=== PATIENT | male | born 1940 | race Caucasian/White ===

== ENCOUNTER 2024-04-22 15:52 | Emergency (ER) | payer MEDICARE ==
[~2024-04-22] VITALS: Ht 167.6 cm; Wt 90.7 kg
[2024-04-22] MEDS ORDERED: VAZALORE81 MG (16:05)
[2024-04-22] MEDS ORDERED: ALLOPURINOL300 MG (16:06)
[2024-04-22] MEDS ORDERED: LISINOPRIL20 MG (16:06)
[2024-04-22] MEDS ORDERED: DILTIAZEM ER300 MG (16:06)
[2024-04-22] MEDS ORDERED: LABETALOL HCL200 MG (16:06)
[2024-04-22] MEDS ORDERED: PANTOPRAZOLE SO40 MG (16:06)
[2024-04-22] MEDS ORDERED: NIACOR500 MG (16:07)
[2024-04-22] MEDS ORDERED: ROSUVASTATIN CA20 MG (16:07)
[2024-04-22] MEDS ORDERED: B12 ACTIVE1000 MCG (16:07)
[2024-04-22] MEDS ORDERED: OSTERA TABLET1 EACH (16:08)
[2024-04-22] MEDS ORDERED: ISOSORBIDE MONO30 MG (16:08)
[2024-04-22] MEDS ORDERED: IRON236 MG (16:09)
[2024-04-22] MEDS ORDERED: GLIMEPIRIDE1 MG (16:09)
[2024-04-22] MEDS ORDERED: PERCOCET 5-3251 EACH (16:10)
[2024-04-22] MEDS ORDERED: OPCON-A EYE DRO15 ML (16:11)
[2024-04-22] MEDS ORDERED: NITROGLYCERIN0.4 MG (16:11)
[2024-04-22] MEDS ORDERED: TRAVATAN Z5 ML (16:11)
[2024-04-22 16:31] LABS: BASOPHILS 0.5 % (0-2); HEMATOCRIT 32.8 % (35.0-50.0); HEMOGLOBIN 11.2 g/dL (12.0-18.0); LYMPHOCYTES 2.8 % (24-44); MCH 33.6 (27-36); MCHC 34.3 g/dl (30-36); MONOCYTES 8.2 % (0-12); NEUTROPHILS 87.5 % (39-80); PLATELET COUNT 115 K/uL (140-440); RBC 3.35 M/ul (4.3-5.7); RDW 15.9 (10.5-15.0)
[2024-04-22 16:42] LABS: INR 1.05 (0.80-1.30); PROTIME 13.6 Sec (11.2-14.2)
[2024-04-22 16:47] LABS: ALBUMIN 3.4 g/dL (3.4-5.0); ALBUMIN/GLOBULIN RATIO 1.06 (1.1-2.4); ANION GAP 15.1 (7-21); BILIRUBIN, TOTAL 0.6 ng/dL (0.2-1.0); BUN/CREATININE RATIO 18.3 (6.0-28.6); CALCIUM 8.7 mg/dL (8.5-10.1); CREATININE, SERUM 1.42 mg/dL (0.70-1.30); POTASSIUM 4.1 mmol/L (3.5-5.1); PROTEIN, TOTAL 6.6 g/dL (6.4-8.2)
[2024-04-22 17:03] LABS: CORONAVIRUS COVID-19 AG NEGATIVE (NEGATIVE); INFLUENZA A AG NEGATIVE (NEGATIVE); INFLUENZA B AG NEGATIVE (NEGATIVE)
[2024-04-22 18:01] LABS: BILIRUBIN, URINE NEGATIVE (negative); BLOOD/HGB, URINE TRACE-L (Negative); KETONE, URINE NEGATIVE (Negative); LEUK ESTERASE, URINE NEGATIVE (negative); NITRITE, URINE NEGATIVE (negative)
[2024-04-22 18:09] LABS: WHITE BLOOD CELLS, URINE 0-1 /HPF (0-5)
[2024-04-22 18:10] LABS: BACTERIA, URINE RARE /hpf (negative); CASTS, URINE HYALINE 2+ \\lpf; COLLECTION TYPE, URINE CLEAN CATCH; CRYSTALS, URINE NONE SEEN (0-1+); EPITHELIAL CELLS, URINE SQUAMOUS 1+ /lpf (0-1+); REFLEX CULTURE, URINE No (No)
[2024-04-22] MEDS ORDERED: AZITHROMYCIN 250 MG TAB PO ONE (19:30)
[2024-04-22] MEDS ORDERED: ACETAMINOPHEN 325 MG TAB PO ONE (19:30)
[2024-04-22] MEDS ORDERED: ALBUTEROL/IPRATROPIUM 3 ML NEB INH ONE (19:30)
[2024-04-22] MEDS ORDERED: ZITHROMAX250 MG PO (19:37)
[2024-04-22 20:23] VITALS: BP 135/58
--- NOTE | 2024-04-23 13:34 | EKG ---
[facility] [address] [facility] [place] [address] Signed Sinus rhythm with premature ventricular complexes Possible Inferior infarct , age undetermined Abnormal ECG No previous ECGs available Confirmed by Alejandra Fraser MD ([id number]) on 04/23/2024 1:34:01 PM Electronically Signed By: ALEJANDRA FRASER MD 04/23/24 1334 PATIENT NAME: KIKE VILLA Electrocardiogram DATE OF : 42 PHYSICIAN: ALEJANDRA FRASER MD REPORT #: [id number] REPORT IS CONFIDENTIAL AND NOT TO BE RELEASED WITHOUT AUTHORIZATION
== END 2024-04-22 20:39 | disposition home or self-care (01) ==
LOC: ED 15:52
PROVIDERS: Emergency Medicine
DX: R05.9 Cough, unspecified (principal); R50.9 Fever, unspecified; R53.1 Weakness; I10 Essential (primary) hypertension; J44.9 Chronic obstructive pulmonary disease, unspecified; E78.5 Hyperlipidemia, unspecified; E11.9 Type 2 diabetes mellitus without complications; Z91.048 Other nonmedicinal substance allergy status; Z88.8 Allergy status to other drugs, medicaments and biological substances; Z88.6 Allergy status to analgesic agent; Z79.84 Long term (current) use of oral hypoglycemic drugs; Z79.82 Long term (current) use of aspirin; Z79.899 Other long term (current) drug therapy
CPT/HCPCS: 36415; 71045; 80053; 81001; 85025; 85610; 93005; 93010; 94640; 99285-25; A9270